=== PATIENT | male | born 1960 | race Caucasian/White ===

== ENCOUNTER 2021-12-22 10:02 | Emergency (ER) | payer MEDICARE ==
[2021-12-22] MEDS ORDERED: IBUPROFEN600 MG PO (10:31)
[2021-12-22] MEDS ORDERED: AMOXICILLIN500 MG PO (10:31)
== END 2021-12-22 10:43 | disposition home or self-care (01) ==
LOC: ER1 10:02
DX: K08.89 Other specified disorders of teeth and supporting structures (principal); R68.84 Jaw pain; F17.200 Nicotine dependence, unspecified, uncomplicated
CPT/HCPCS: 99283